=== PATIENT | female | born 1960 | race Caucasian/White ===

== ENCOUNTER 2018-05-12 05:28 | Day surgery (SDC) | payer OTHER, SELFPAY ==
--- NOTE | 2018-04-26 16:47 | EKG12_ITS ---
Test Reason : PREOP Blood Pressure : / mmHG Vent. Rate : 080 BPM Atrial Rate : 080 BPM P-R Int : 148 ms QRS Dur : 078 ms QT Int : 380 ms P-R-T Axes : 080 025 018 degrees QTc Int : 438 ms Normal sinus rhythm Normal ECG Confirmed by RASHMI DONALDSON, JELANI ([id number]), supervising editor news reel NEAL DIAS ([id number]) on 04/28/2018 3:34:00 PM Referred By: Dominic Bourne Confirmed By:JELANI CARABALLO MD
[2018-04-26 17:15] LABS: Hematocrit 43.9 % (37-47); Hemoglobin 14.5 g/dl (12.0-15.0); Mean Corpuscular Hgb 30.9 pg (27.0-32.0); Mean Corpuscular Volume 93.6 fL (81-99); Mean Platelet Vol. 9.8 fl (6.2-12.0); Platelet Count 254 K/mm3 (150-450); RBC Distribution Width CV 13.3 % (11.6-14.6); RBC Distribution Width SD 45.2 fl (35.1-43.9); Red Blood Count 4.69 M/mm3 (4.2-5.4); White Blood Count 9.1 K/mm3 (4.4-11.0)
[2018-04-26 17:18] LABS: Scan Indicated on CBC? Y/N NO
[2018-04-26 18:05] LABS: Anion Gap 8 (5-15); BUN 38 mg/dL (7-18); BUN/Creat Ratio 22.5 RATIO (10-20); Calcium,Total 9.1 mg/dL (8.5-10.1); Chloride 104 mmol/L (98-107); Creatinine, Serum 1.69 mg/dL (0.55-1.02); EST Glomerular Filtration Rate 33 mL/min (>60); Est Glom Filt Rate - Afr Amer 40 mL/min (>60); Glucose 81 mg/dL (74-106); Potassium 4.2 mmol/L (3.5-5.1); Sodium Level 142 mmol/L (136-145)
[2018-05-12] VITALS (16 sets, daily range): BP systolic 125–174; BP diastolic 67–93; PULSE 70–94; RESP 14–16; TEMP 36.2–37.1; O2SAT 96–100; BMI 23.7
[2018-05-12] MEDS: Cefazolin 2 GM in 0.9% Normal Saline 100 ML IV (07:13)
--- NOTE | 2018-05-12 07:15 | RAD_ITS ---
STUDY: X-RAY - RIGHT KNEE REASON FOR EXAM: Female, 57 years old. Pain TECHNIQUE: 2 intraoperative view(s) of the knee. COMPARISON: None. FINDINGS: 2 limited views of the right knee from surgery show a percutaneous pin placed into the distal femur. RAD/Knee 1 or 2 Views IMPRESSION: Percutaneous pin in the distal femur Electronically Signed: David Lewis MD at 17:49 EDT , Service support ,
[2018-05-12] MEDS: Bupiv/Epi 0.5% Mpf 30 ML Vial (08:04)
--- NOTE | 2018-05-12 08:22 | OP.PCM_ITS ---
Report of Operation Date of Procedure: 05/12/18 Pre-Operative Diagnosis: Right knee complex medial meniscus tear. Right knee subchondral fracture medial femoral condyle Post-Operative Diagnosis: Right knee complex medial meniscus tear. Right knee subchondral fracture medial femoral condyle. Right knee full-thickness cartilage defect 1 cm x 1 cm medial femoral condyle Surgery/Procedure Performed:: Right knee arthroscopic partial medial meniscectomy. Right knee arthroscopically aided fixation of subchondral fracture medial femoral condyle. 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 Patient was brought back to the operating room where they were transferred to the bed. Anesthesia assumed control of the C-spine airway and administered anesthetic. All bony prominences were identified and well- padded and the right leg was placed in the arthroscopic leg cano. The contralateral leg was then draped over the bed and well-padded. There was padding underneath both sciatic nerves. The foot of the bed was then dropped and the R leg was prepped in a sterile fashion. The surgeon then scrubbed. Upon reentering the room, the operative leg was draped in a standard orthopedic fashion. A timeout was called, everyone agreed upon the side, the site, the procedure to be performed, patient's identity and antibiotics given. Incisions were marked out for the medial and lateral infrapatellar portals. Esmarch bandage was then used to exsanguinate the leg and tourniquet was placed at 250 mmHg. At this time, the lateral portal incision was made in a vertical fashion. The trocar was placed into the joint. The camera was then placed and the patellofemoral joint was visualized. The patella did appear to have minimal chondral changes. The trochlea appeared to have minimal chondral changes. We then directed our attention to the medial gutter where there was no foreign body. Then directed our attention to the medial joint compartment. There is a chondral flap over the lateral aspect of the medial femoral condyle consistent with a subchondral fracture. A probe was placed into this area and the flap was clearly from the subchondral bone. Chondral changes on the medial distal femur, grade 2 chondral changes on the medial tibial plateau. The medial meniscus had complex posterior horn tear. The medial portal was then placed under direct visualization using a spinal needle an 11 blade scalpel. Once this was done a probe was placed in the joint and the meniscus was probed finding complex tear and free chondral flap. The shaver was then placed into the joint and the chondral flap was debrided back to stable edges. This did reveal an area of grade 4 chondral lesion with exposed bone about 1 cm x 1 cm. The biters and stanislav were then used sequentially to debriding get rid of any free edges that could be a source of pain and catching in the meniscus tear. Once we felt medial meniscus tear was adequately debrided, we again visualized the joint and noted the meniscus tear was adequately debrided. Attention was then turned towards the notch where the anterior cruciate ligament was intact. PCL was visualized and appeared intact. Attention was then directed towards the lateral compartment where the lateral distal femur had minimal chondral changes, the lateral proximal tibia had minimal chondral changes. The lateral meniscus had minimal. We then directed our attention to the lateral gutter, which was visualized and no free bodies were noted. Based on the preoperative review of the patient's right knee MRI, the location of the bone marrow lesion, consistent with an insufficiency or stress fracture in the distal medial femoral condyle was identified. Preoperative surgical planning allowed for determination of the optimal method for assessing the lesion. Intraoperatively, image fluoroscopy combined with bone targeting instrumentation from [employer] was used to guide surgical instruments into the proximity of the subchondral distal medial femoral condyle fracture. The standard repair methodology was used to treat the subchondral bone defect in the distal medial femoral condyle. Image fluoroscopy was utilized to confirm accurate insertion of the active port injection cannula into the subchondral fracture. After insertion, fracture stabilization was performed by injecting 2 cc of [employer] bone substitute material into the distal medial femoral condyle. Image fluoroscopy was used to monitor the injection process and ensure injection of the bone substitute into the subchondral bone so that the bile material flowed into the fracture site to stabilize the fracture and facilitate fracture repair. After this was performed the arthroscope was placed back into the knee and a diagnostic arthroscopy was performed to ensure no intra-articular cement was encountered. None was encountered.at this time the wound was copiously irrigated out with normal saline with epinephrine. The wound was closed with 4-0 nylon and 0.5% Marcaine and epinephrine were injected for local anesthetic. Xeroform was placed over the incision. Sterile dressing was placed. Compressive dressing was placed. Tourniquet was let down. For that there was then placed up. Patient was awakened by anesthesia patient was transferred to the PACU for recovery in stable condition. Postoperative plan: Patient will be made weightbearing for a total of 2 weeks.. Return to activities as tolerated. He will come to the office in 2 weeks for postoperative wound check and suture removal. If he is doing well that time he can follow-up as needed. Grafts/Implants Used: [employer] bone substitute - Complications None - Admit VTE Documentation VTE Present on Admission: No VTE Mechan Device Prophylaxis: SCD's, Thigh High SARA Hose VTE Pharm Prophylaxis ordered?: Yes
--- NOTE | 2018-05-12 09:56 | EKG12_ITS ---
Test Reason : PAIN Blood Pressure : / mmHG Vent. Rate : 078 BPM Atrial Rate : 078 BPM P-R Int : 148 ms QRS Dur : 080 ms QT Int : 382 ms P-R-T Axes : 082 030 016 degrees QTc Int : 435 ms Normal sinus rhythm Normal ECG When compared with ECG of 26-APR-2018 16:52, No significant change was found Confirmed by DANA MURRAY ([id number]), general expeditor NEAL DIAS ([id number]) on 05/18/2018 11:30:42 AM Referred By: Dominic Bourne Confirmed By:DANA MURRAY
[2018-05-12] MEDS: Mag Hydrox/Al Hydrox/Simeth 30 ML UDC PO (09:58)
[2018-05-12] MEDS: oxyCODONE 5 MG Tablet PO (11:44)
== END 2018-05-12 12:49 | disposition home or self-care (01) ==
LOC: SDC 05:28 → AC 05:29
PROVIDERS: Anesthesiology; Family Provider Orthopaedic Surgery; PCP Orthopaedic Surgery; Referring Provider Specialist; Visit Provider Specialist
PROC: (CPT 29870; principal; 2018-05-12 06:55)
DX: S83.231A Complex tear of medial meniscus, current injury, right knee, initial encounter (principal); V29.9XXA Motorcycle rider (driver) (passenger) injured in unspecified traffic accident, initial encounter; Z79.899 Other long term (current) drug therapy; Z79.82 Long term (current) use of aspirin; E07.9 Disorder of thyroid, unspecified; Z87.891 Personal history of nicotine dependence; M71.21 Synovial cyst of popliteal space [Baker], right knee; M17.11 Unilateral primary osteoarthritis, right knee; N18.3 Chronic kidney disease, stage 3 (moderate); K21.9 Gastro-esophageal reflux disease without esophagitis; Z86.718 Personal history of other venous thrombosis and embolism; Z85.850 Personal history of malignant neoplasm of thyroid; S72.431A Displaced fracture of medial condyle of right femur, initial encounter for closed fracture
CPT/HCPCS: 01400; 29855; 29881; 36415; 73560; 76000; 80048; 84484; 85027; 93005; C1713; J7120; J2405